=== PATIENT | female | born 1960 | race Caucasian/White ===

== ENCOUNTER 2017-02-20 08:15 | Outpatient (CLI) | payer OTHER | END 2017-02-20 08:16 | disposition home or self-care (01) | DX: Z00.00 Encounter for general adult medical examination without abnormal findings (principal) ==

== ENCOUNTER 2017-04-16 09:25 | Outpatient (CLI) | payer OTHER ==
--- NOTE | 2017-04-17 18:22 | Mammography Report ---
DIGITAL SCREENING MAMMOGRAM: 04/16/2017 CLINICAL INDICATION: A 56-year-old with history of late childbearing for screening. COMPARISON: Films from [place], [place], dated 06/28/2015, 03/09/2014, 10/03/2011. TECHNIQUE: Routine CC and MLO projections were obtained of the breasts. The breasts demonstrate fatty replacement bilaterally. A few punctate, typically benign calcificatio ns are present. No suspicious masses, clustered microcalcifications, or regions of architectural dis tortion are identified. IMPRESSION: BENIGN FINDINGS. RECOMMENDATION: ROUTINE ANNUAL SCREENING UNLESS OTHERWISE CLINICALLY INDICATED. BIRADS CATEGORY: 2, BENIGN FINDINGS. STANDARD QUALIFYING STATEMENTS 1. This examination was reviewed with the aid of Computed-Aided Detection (CAD). 2. A negative or benign imaging report should not delay biopsy if clinically suspicious findings are present. Consider surgical consultation if warranted. More than 5% of cancers are not identified b y imaging. 3. Dense breasts may obscure an underlying neoplasm. JOB #: [id number] EXT JOB #:[id number]
== END 2017-04-16 09:26 | disposition home or self-care (01) ==
LOC: DI 09:25
PROVIDERS: ATTEND Physician Assistant Medical
DX: Z12.31 Encounter for screening mammogram for malignant neoplasm of breast (principal)
CPT/HCPCS: 77067

== ENCOUNTER 2018-10-08 08:30 | Outpatient (CLI) | payer OTHER ==
[2018-10-08 14:04] LABS: BASOPHILS % (AUTO) 0.7 %; EOSINOPHILS # (AUTO) 0.1 10^3/uL (0.0-0.7); EOSINOPHILS % (AUTO) 2.1 %; HGB - HEMOGLOBIN 15.9 g/dL (12.0-16.0); LYMPHOCYTES # (AUTO) 1.3 10^3/uL (1.5-3.5); LYMPHOCYTES % (AUTO) 32.9 %; MEAN CORPUSCULAR HEMOGLOBIN 33.6 pg (27.0-31.0); MEAN CORPUSCULAR HGB CONC 34.8 g/dL (32.0-36.0); MEAN CORPUSCULAR VOLUME 96.8 fL (81.0-99.0); MEAN PLATELET VOLUME 8.4 fL (7.9-10.8); MONOCYTES # (AUTO) 0.4 10^3/uL (0.0-1.0); MONOCYTES % (AUTO) 8.9 %; NEUTROPHILS # (AUTO) 2.2 10^3/uL (1.5-6.6); NEUTROPHILS % (AUTO) 55.4 %; PLT - PLATELET COUNT 194 10^3/uL (130-450); RED BLOOD COUNT 4.72 10^6/uL (4.20-5.40); RED CELL DISTRIBUTION WIDTH 12.9 % (12.0-15.0)
[2018-10-08 14:27] LABS: ALBUMIN 4.5 g/dL (3.2-5.5); ALBUMIN/GLOBULIN RATIO 1.4 (1.0-2.2); ALKALINE PHOSPHATASE 93 IU/L (42-121); ALT ALANINE AMINOTRANSFERASE 21 IU/L (10-60); AST ASPARTATE AMINOTRANSFERASE 21 IU/L (10-42); BILIRUBIN,TOTAL 0.7 mg/dL (0.2-1.0); BUN - BLOOD UREA NITROGEN 15 mg/dL (6-20); CALCIUM 9.6 mg/dL (8.5-10.3); CARBON DIOXIDE - CO2 28 mmol/L (21-32); CHLORIDE 105 mmol/L (101-111); CHOL/HDL RATIO 3.3 (<4.4); CHOLESTEROL 199 mg/dL; CREATININE 0.7 mg/dL (0.4-1.0); GFR - MDRD 86 (>89); GLUCOSE 86 mg/dL (70-100); HDL CHOLESTEROL 60 mg/dL; LDL CHOLESTEROL,CALCULATED 109 mg/dL; LDL/HDL RATIO 1.8 (<4.4); SODIUM 140 mmol/L (135-145); TOTAL PROTEIN 7.7 g/dL (6.7-8.2); VLDL CHOLESTEROL 30 mg/dL
== END 2018-10-08 23:59 | disposition home or self-care (01) ==
LOC: LAB.WCP 08:30
PROVIDERS: ATTEND Physician Assistant
DX: Z00.00 Encounter for general adult medical examination without abnormal findings (principal); E78.5 Hyperlipidemia, unspecified; Z51.81 Encounter for therapeutic drug level monitoring; Z79.899 Other long term (current) drug therapy
CPT/HCPCS: 36415; 80053; 80061; 83721; 84443; 85025

== ENCOUNTER 2018-12-12 09:43 | Outpatient (CLI) | payer OTHER ==
--- NOTE | 2018-12-12 16:07 | Ultrasound Report ---
Reason: THYROMEGALY,CERVICAL LYMPHADENOPATHY,ANTERIOR,BILA Procedure Date: 12/12/2018 Accession Number: [id number] / [id number] Procedure: US - Head or Neck Soft Tissue CPT Code: FULL RESULT: EXAM: THYROID ULTRASOUND EXAM DATE: 12/12/2018 10:06 AM. CLINICAL HISTORY: Thyromegaly, cervical lymphadenopathy, anterior, bilaterally. COMPARISON: None. TECHNIQUE: Real time sonographic imaging of the thyroid was performed by the special crimes investigator. Multiple customer service representative static images were saved for review. FINDINGS: THYROID GLAND: Right Lobe: 4.6 x 1.8 x 1.6 cm, volume 6.9 cc. Normal background echotexture. Right Lobe Nodules: 0.7 x 0.5 x 0.6 cm solid echogenic nodule with calcification, single coarse. Left Lobe: 4.7 x 1.4 x 1.3 cm, volume 4.4 cc. Normal background echotexture. Left Lobe Nodules: Hypoechoic 0.2 cm nodule, likely cyst. Isthmus: 0.2 cm AP. Isthmic Nodules: None. LYMPH NODES: A hyperechoic 0.8 x 0.4 x 0.6 cm nodule along the inferior pole of the left lobe of the thyroid does not demonstrate sonographic appearance of a lymph node. Nonspecific, possibly parathyroid gland. No definite lymphadenopathy. OTHER: None. IMPRESSION: Recommend follow-up ultrasound to demonstrate stability of the left lobe of the thyroid findings in 6 months. If stable thereafter, annual surveillance until long-term stability is established. Management recommendations are based on 2015 [place] [employer] Management Guidelines for Adult Patients with Thyroid Nodules and Differentiated Thyroid Cancer. RADIA
== END 2018-12-12 09:44 | disposition home or self-care (01) ==
LOC: DI 09:43
PROVIDERS: ATTEND Physician Assistant
DX: E04.2 Nontoxic multinodular goiter (principal)
CPT/HCPCS: 76536

== ENCOUNTER 2019-05-09 12:43 | Outpatient (CLI) | payer OTHER ==
[2019-05-09] MEDS ORDERED: GADOBUTROL 10 MMOL/10 ML VIAL ONE (13:23)
[2019-05-09] MEDS ORDERED: GADOBUTROL 10 MMOL/10 ML VIAL IVP ONE (14:07)
--- NOTE | 2019-05-10 01:45 | MRI Report ---
Reason: SEIZURE DISORDER, HX OF OLIGODENDROGLIOMA OF BRAIN Procedure Date: 05/09/2019 Accession Number: [id number] / [id number] Procedure: MRI - Brain W/WO CPT Code: FULL RESULT: EXAM: MRI BRAIN WITHOUT AND WITH CONTRAST EXAM DATE: 05/09/2019 02:19 PM. CLINICAL HISTORY: Seizure disorder, history of oligodendroglioma of brain. COMPARISON: None. TECHNIQUE: Multiplanar, multisequence T1-weighted and fluid-sensitive MR sequences of the brain were performed. Sequences optimized for routine and seizure evaluation. Other: Additional coronal images through the hippocampi were obtained. IV Contrast: 9 mL of Gadavist. FINDINGS: Brain Volume: Normal for age. Parenchyma: A well-defined resection cavity is present in the right frontal lobe correlating with the history of prior brain tumor. T2 hyperintensity is seen along the medial and posterior margins of the resection cavity without associated mass effect, most likely representing post surgical gliosis. There is no diffusion restriction to suggest an acute or recent infarct. The susceptibility sensitive sequence demonstrates no evidence of hemorrhage. Minimal presumed chronic microvascular ischemic changes are noted in the bilateral frontal lobes, not unusual for the patient's age. Coronal images through the hippocampi demonstrate no evidence of abnormal T2 hyperintensity in either hippocampus to suggest mesial temporal sclerosis. Elsewhere in the brain, there is no evidence of cortical dysplasia or bernal matter heterotopia. Ventricles/Cisterns: No hydrocephalus. No abnormal extra-axial fluid collection or hemorrhage. Orbits: Symmetric and unremarkable. Sella Turcica: The pituitary gland, cavernous sinuses, suprasellar cistern and optic chiasm are unremarkable. IAC: Symmetric and unremarkable. Vasculature: Normal signal flow void is seen in the major arterial structures at the skull base. The dural sinuses are patent and enhance normally. Sinuses: No acute sinus disease. Bones: Right frontal craniotomy changes are noted from prior brain tumor surgery. IMPRESSION: 1. A right frontal resection cavity is present with mild surrounding T2 hyperintensity, likely representing postoperative gliosis. There is no associated mass-effect or nodular enhancement to suggest recurrent tumor. 2. Elsewhere in the brain, there is no evidence of mesial temporal sclerosis, cortical dysplasia, or bernal matter heterotopia. 3. No acute infarct or hemorrhage. RADIA
== END 2019-05-09 12:44 | disposition home or self-care (01) ==
LOC: DI 12:43
PROVIDERS: ATTEND Physician Assistant
DX: G40.909 Epilepsy, unspecified, not intractable, without status epilepticus (principal); Z85.841 Personal history of malignant neoplasm of brain
CPT/HCPCS: 70553; A9585

== ENCOUNTER 2019-06-16 14:33 | Outpatient (CLI) | payer OTHER ==
--- NOTE | 2019-06-16 16:14 | Ultrasound Report ---
Reason: THYROID NODULE Procedure Date: 06/16/2019 Accession Number: [id number] / [id number] Procedure: US - Head or Neck Soft Tissue CPT Code: FULL RESULT: EXAM: THYROID ULTRASOUND EXAM DATE: 06/16/2019 03:19 PM. CLINICAL HISTORY: THYROID NODULE. COMPARISON: HEAD OR NECK SOFT TISSUE 12/12/2018 10:06 AM. TECHNIQUE: Real time sonographic imaging of the thyroid was performed by the health screener. Multiple self pay representative static images were saved for review. FINDINGS: THYROID GLAND: Right Lobe: 4.1 x 1.8 x 1.8 cm, volume 6.7 cc. Normal background echotexture. Right Lobe Nodules: 0.8 x 0.6 x 0.6 solid hyperechoic nodule with solitary calcification, unchanged. Echogenic 0.7 x 0.4 x 0.5 cm nodule along the mid medial right thyroid again noted, question parathyroid, as before. Left Lobe: 3.3 x 1 x 1.6 cm, volume 2.7 cc. Normal background echotexture. Left Lobe Nodules: 0.4 x 0.4 x 0.3 hypoechoic medial lower pole nodule. 0.2 x 0.2 x 0.3 cm lateral hypoechoic mid gland nodule Isthmus: 0.15 cm AP. Isthmic Nodules: None. LYMPH NODES: No adenopathy demonstrated in the central or lateral compartment. OTHER: None. IMPRESSION: Stable thyroid ultrasound compared with 12/12/2018. Suggest follow-up thyroid ultrasound in 12-24 months. Management recommendations are based on 2015 [place] [employer] Management Guidelines for Adult Patients with Thyroid Nodules and Differentiated Thyroid Cancer. RADIA
== END 2019-06-16 14:34 | disposition home or self-care (01) ==
LOC: DI 14:33
PROVIDERS: ATTEND Physician Assistant
DX: E04.2 Nontoxic multinodular goiter (principal)
CPT/HCPCS: 76536

== ENCOUNTER 2021-05-03 08:00 | Outpatient (CLI) | payer OTHER ==
[2021-05-03 11:56] LABS: BASOPHILS % (AUTO) 0.9 %; EOSINOPHILS # (AUTO) 0.1 10^3/uL (0.0-0.7); HCT - HEMATOCRIT 46.5 % (37.0-47.0); HGB - HEMOGLOBIN 15.2 g/dL (12.0-16.0); LYMPHOCYTES # (AUTO) 1.9 10^3/uL (1.5-3.5); LYMPHOCYTES % (AUTO) 40.7 %; MEAN CORPUSCULAR HEMOGLOBIN 32.5 pg (27.0-31.0); MEAN CORPUSCULAR HGB CONC 32.7 g/dL (32.0-36.0); MEAN CORPUSCULAR VOLUME 99.4 fL (81.0-99.0); MEAN PLATELET VOLUME 10.1 fL (7.9-10.8); MONOCYTES # (AUTO) 0.4 10^3/uL (0.0-1.0); MONOCYTES % (AUTO) 8.8 %; NEUTROPHILS # (AUTO) 2.2 10^3/uL (1.5-6.6); NEUTROPHILS % (AUTO) 47.4 %; PLT - PLATELET COUNT 206 10^3/uL (130-450); RED BLOOD COUNT 4.68 10^6/uL (4.20-5.40); RED CELL DISTRIBUTION WIDTH 12.6 % (12.0-15.0); WHITE BLOOD COUNT 4.5 x10^3/uL (4.8-10.8)
[2021-05-03 12:23] LABS: THYROID STIMULATING HORMONE 6.16 uIU/mL (0.34-5.60)
[2021-05-03 12:29] LABS: ALBUMIN 4.4 g/dL (3.2-5.5); ALBUMIN/GLOBULIN RATIO 1.4 (1.0-2.2); ALKALINE PHOSPHATASE 75 IU/L (42-121); ALT ALANINE AMINOTRANSFERASE 18 IU/L (10-60); AST ASPARTATE AMINOTRANSFERASE 21 IU/L (10-42); BILIRUBIN,TOTAL 0.5 mg/dL (0.2-1.0); BUN - BLOOD UREA NITROGEN 19 mg/dL (6-20); CARBON DIOXIDE - CO2 27 mmol/L (21-32); CHLORIDE 103 mmol/L (101-111); CHOL/HDL RATIO 3.2 (<4.4); CHOLESTEROL 207 mg/dL; CREATININE 0.9 mg/dL (0.4-1.0); GFR - MDRD 64 (>89); GLUCOSE 94 mg/dL (70-100); HDL CHOLESTEROL 65 mg/dL; LDL CHOLESTEROL,CALCULATED 127 mg/dL; POTASSIUM 4.4 mmol/L (3.5-5.0); SODIUM 139 mmol/L (135-145); TOTAL PROTEIN 7.6 g/dL (6.7-8.2); TRIGLYCERIDES 73 mg/dL; VLDL CHOLESTEROL 15 mg/dL
[2021-05-03 13:17] LABS: FREE T4 (FREE THYROXINE) 1.03 ng/dL (0.58-1.64)
== END 2021-05-03 23:59 | disposition home or self-care (01) ==
LOC: LAB.WCP 08:00
PROVIDERS: ATTEND Family Medicine
DX: Z00.00 Encounter for general adult medical examination without abnormal findings (principal); E04.1 Nontoxic single thyroid nodule
CPT/HCPCS: 36415; 80053; 80061; 83721; 84439; 84443; 85025

== ENCOUNTER 2022-07-03 11:44 | Outpatient (CLI) | payer OTHER ==
--- NOTE | 2022-07-03 20:26 | XRAY Report ---
PROCEDURE: Toe(s) LT INDICATIONS: CONTUSION OF L GREAT TOE TECHNIQUE: AP view of the foot and 2 views of the great toe acquired COMPARISON: None FINDINGS: Bones: There is a mildly displaced transverse fracture of the first proximal phalanx. Intra-articular extension into the interphalangeal joint is not definitely seen, but is also difficult to exclude. N o suspicious bony lesions. Soft tissues: No suspicious soft tissue densities. Soft tissue edema is seen in the great toe. IMPRESSION: Mildly displaced fracture of the first proximal phalanx. Reviewed by: Matthieu Boo MD on 07/03/2022 8:23 PM PDT Approved by: Matthieu Boo MD on 07/03/2022 8:23 PM PDT Station ID: [id number]
== END 2022-07-03 11:45 | disposition home or self-care (01) ==
LOC: DI.N 11:44
PROVIDERS: ATTEND Family Medicine
DX: S90.112A Contusion of left great toe without damage to nail, initial encounter (principal); S92.412A Displaced fracture of proximal phalanx of left great toe, initial encounter for closed fracture
CPT/HCPCS: 73660

== ENCOUNTER 2022-07-31 08:00 | Outpatient (CLI) | payer OTHER ==
--- NOTE | 2022-07-31 16:37 | XRAY Report ---
PROCEDURE: Toe(s) LT INDICATIONS: LEFT GREAT TOE FRACTURE TECHNIQUE: 3 views of the left foot first toe acquired. COMPARISON: Left foot/toe radiographs 07/03/2022 FINDINGS: Bones: Redemonstrated transverse fracture of the first digit proximal phalanx distally. There is ava lar alignment of the fracture, approximately one fifth shaft width medial displacement of the distal fragment. Adjacent bony callus appears increased. Soft tissues: No suspicious soft tissue densities. IMPRESSION: Similar alignment of the first digit proximal phalanx fracture. Adjacent bony callus appears increase d. Reviewed by: Matthieu Aviles MD on 07/31/2022 4:36 PM PDT Approved by: Matthieu Aviles MD on 07/31/2022 4:36 PM PDT Station ID: [id number]
== END 2022-07-31 23:59 | disposition home or self-care (01) ==
LOC: DI.WOS 08:00
PROVIDERS: ATTEND Orthopaedic Surgery
DX: S92.412D Displaced fracture of proximal phalanx of left great toe, subsequent encounter for fracture with routine healing (principal)

== ENCOUNTER 2022-12-12 07:53 | Outpatient (CLI) | payer MEDICAID, OTHER ==
--- NOTE | 2022-12-12 14:11 | Ultrasound Report ---
LIMITED ULTRASOUND OF RIGHT BREAST: 12/12/2022 CLINICAL: Palpable right breast lump. Comparison is made to exams dated: 07/03/2019 mammogram, 04/16/2017 mammogram, and 06/28/2015 mammogram - [facility]. Color flow and real-time ultrasound of the right breast 5 o'clock region were performed. Felder scale images of the real-time examination were reviewed. There is a 1.6 cm x 1 cm x 0.5 cm irregular fluid collection in the right breast at 5 o'clock posteri or depth 10 cm from the nipple. This irregular fluid collection displays internal echoes. This greg elates as palpated. There is associated skin involvement. IMPRESSION: PROBABLY BENIGN The 1.6 cm x 1 cm x 0.5 cm irregular fluid collection in the right breast resembles a sebaceous cyst or an abscess and is probably benign. A follow-up ultrasound in 6 months is recommended to demonstrate stability or resolution. Exam findings were conveyed to the patient. Patient is advised to monitor for significant change. Cli nical follow-up as needed. This exam was interpreted at Station ID: [id number]. Electronically Signed By: Bandar Adhikari M.D. slc/:12/12/2022 09:09:25 Ultrasound BI-RADS: 3 Probably benign BI-RADS CATEGORY: (3) - 3 Ultrasound [id number] 6 month follow-up LATERALITY: (B)
--- NOTE | 2022-12-12 14:11 | Mammography Report ---
BILATERAL DIGITAL DIAGNOSTIC MAMMOGRAM 3D/2D: 12/12/2022 CLINICAL: Palpable right breast lump. Due for bilateral imaging. Comparison is made to exams dated: 07/03/2019 mammogram, 04/16/2017 mammogram, and 06/28/2015 mammogram - [facility]. Both breasts are almost entirely fatty (category a/<25% glandular tissue). There is a new focal asymmetry in the right breast at 5 o'clock posterior depth. This correlates as palpated. No other significant masses, calcifications, or other findings are seen in either breast. IMPRESSION: INCOMPLETE: NEEDS ADDITIONAL IMAGING EVALUATION The new focal asymmetry in the right breast is indeterminate. A targeted ultrasound is recommended and will immediately follow. Based on the Tyrer Cuzick model (a risk assessment model) the patients lifetime risk is 8.6% and her 10 year risk is 3.7%. According to the ACR, ACS, and NCCN guidelines, an annual breast MRI exam jose manuel g with mammogram is recommended if the patients lifetime risk is 20% or greater. This exam was interpreted at Station ID: [id number]. NOTE: For mammograms, a report in lay terms will be sent to the patient. Approximately 15% of breast malignancies will not be visualized mammographically. In the management of a palpable breast mass, a negative mammogram must not discourage biopsy of a clinically suspicious lesion. Electronically Signed By: Bandar Adhikari M.D. slc/:12/12/2022 09:04:07 ACR BI-RADS Category 0: Incomplete 3340F PARENCHYMAL PATTERN: (F) - The breast(s) demonstrate(s) diffuse fatty replacement. BI-RADS CATEGORY: (0) - 0 Ultrasound [id number] Immediate follow-up LATERALITY: (B)
== END 2022-12-12 07:54 | disposition home or self-care (01) ==
LOC: DI 07:53
PROVIDERS: ATTEND Physician Assistant
DX: N63.14 Unspecified lump in the right breast, lower inner quadrant (principal); R92.8 Other abnormal and inconclusive findings on diagnostic imaging of breast

== ENCOUNTER 2023-01-04 07:53 | Outpatient (CLI) | payer MEDICAID ==
[2023-01-04 08:24] LABS: ALBUMIN/GLOBULIN RATIO 1.3 (1.0-2.2); ALKALINE PHOSPHATASE 101 IU/L (42-121); ALT ALANINE AMINOTRANSFERASE 19 IU/L (10-60); AST ASPARTATE AMINOTRANSFERASE 22 IU/L (10-42); BILIRUBIN,TOTAL 0.2 mg/dL (0.2-1.0); BUN - BLOOD UREA NITROGEN 18 mg/dL (6-20); CALCIUM 9.3 mg/dL (8.5-10.3); CARBON DIOXIDE - CO2 27 mmol/L (21-32); CHLORIDE 107 mmol/L (101-111); CHOL/HDL RATIO 4.1 (<4.4); CHOLESTEROL 290 mg/dL; CREATININE 0.9 mg/dL (0.4-1.0); GFR - MDRD 63 (>89); GLUCOSE 98 mg/dL (70-100); HDL CHOLESTEROL 70 mg/dL; LDL CHOLESTEROL,CALCULATED 198 mg/dL; LDL/HDL RATIO 2.8 (<4.4); POTASSIUM 4.1 mmol/L (3.5-5.0); SODIUM 144 mmol/L (135-145); TOTAL PROTEIN 7.2 g/dL (6.7-8.2); TRIGLYCERIDES 108 mg/dL; VLDL CHOLESTEROL 22 mg/dL
[2023-01-04 08:34] LABS: BASOPHILS # (AUTO) 0.1 10^3/uL (0.0-0.1); BASOPHILS % (AUTO) 1.2 %; EOSINOPHILS # (AUTO) 0.1 10^3/uL (0.0-0.7); EOSINOPHILS % (AUTO) 2.6 %; HCT - HEMATOCRIT 45.1 % (37.0-47.0); HGB - HEMOGLOBIN 14.8 g/dL (12.0-16.0); MEAN CORPUSCULAR HEMOGLOBIN 32.5 pg (27.0-31.0); MEAN CORPUSCULAR HGB CONC 32.8 g/dL (32.0-36.0); MEAN CORPUSCULAR VOLUME 98.9 fL (81.0-99.0); MONOCYTES # (AUTO) 0.5 10^3/uL (0.0-1.0); MONOCYTES % (AUTO) 10.7 %; NEUTROPHILS # (AUTO) 1.7 10^3/uL (1.5-6.6); NEUTROPHILS % (AUTO) 39.5 %; PLT - PLATELET COUNT 224 10^3/uL (130-450); RED BLOOD COUNT 4.56 10^6/uL (4.20-5.40); RED CELL DISTRIBUTION WIDTH 12.8 % (12.0-15.0); WHITE BLOOD COUNT 4.3 x10^3/uL (4.8-10.8)
[2023-01-04 08:36] LABS: THYROID STIMULATING HORMONE 4.93 uIU/mL (0.34-5.60)
== END 2023-01-04 07:54 | disposition home or self-care (01) ==
LOC: LAB 07:53
PROVIDERS: ATTEND Physician Assistant Medical
DX: E78.5 Hyperlipidemia, unspecified (principal); E04.1 Nontoxic single thyroid nodule; G40.909 Epilepsy, unspecified, not intractable, without status epilepticus
CPT/HCPCS: 36415; 80050; 80061; 80177; 83721

== ENCOUNTER 2023-06-06 06:19 | Day surgery (SDC) | payer MEDICAID ==
[2023-06-06] MEDS ORDERED: LACTATED RINGERS 1,000 ML IV ONE ×2 (06:23→08:49)
--- NOTE | 2023-06-06 07:11 | ANESTHESIA ---
Pre-Anesthesia VS, & Labs - Diagnosis +cologuard - Procedure colonoscopy Vital Signs: Temp Pulse Resp BP Pulse Ox O2 Flow Rate 36.0 C L 18 137/95 H 97 06/06/23 06:23 06/06/23 06:23 06/06/23 06:23 06/06/23 06:23 Height: 5 ft 6 in Weight (kg): 97 kg Body Mass Index: 34.4 BMI Classification: Obese - NPO >8 hours - Is Patient ?: No - Lab Results Lab results reviewed: Yes Home Medications and Allergies Home Medications: Ambulatory Orders Atorvastatin [Lipitor] 20 mg PO DAILY 06/05/23 Cyclobenzaprine [Flexeril] 10 mg PO DAILY 06/05/23 Gabapentin [Neurontin] 600 mg PO BID 06/05/23 Levetiracetam [Keppra] 1,000 mg PO BID 06/05/23 Naproxen Sodium [Aleve] 440 mg PO DAILY 06/05/23 Calcium Carbonate [Calcium] 600 mg PO 06/06/23 [place]-3/Dha/Epa/Fish Oil [Fish Oil 500 mg Softgel] 06/06/23 Atorvastatin [Lipitor] 20 mg PO DAILY 06/05/23 Cyclobenzaprine [Flexeril] 10 mg PO DAILY 06/05/23 Gabapentin [Neurontin] 600 mg PO BID 06/05/23 Levetiracetam [Keppra] 1,000 mg PO BID 06/05/23 Naproxen Sodium [Aleve] 440 mg PO DAILY 06/05/23 Calcium Carbonate [Calcium] 600 mg PO 06/06/23 [place]-3/Dha/Epa/Fish Oil [Fish Oil 500 mg Softgel] 06/06/23 Allergies/Adverse Reactions: Allergies Allergy/AdvReac Type Severity Reaction Status Date / Time No Known Drug Allergies Allergy Verified 06/05/23 13:17 Anes History & Medical History - Anesthetic History Anesthesia Complications: reports: No previous complications Family history of Anesthesia Complications: Denies Family history of Malignant Hyperthermia: Denies - Medical History Cardiovascular: reports: High cholesterol Pulmonary: reports: None Gastrointestinal: reports: Chronic constipation Urinary: reports: None Neuro: reports: Seizure disorder Musculoskeletal: reports: Chronic back pain Endocrine/Autoimmune: reports: None Blood Disorders: reports: None Skin: reports: None Psychosocial: reports: Alcohol - Surgical History General: reports: Appendectomy Gynecologic: reports: Other Neurologic: reports: Craniotomy, Other Exam General: Alert, Oriented x3, Cooperative Dental: WNL Mouth Openin Fingerbreadth Neck Mobility: Normal Mallampati classification: III Thyromental Distance: 4-6 cm Respiratory: Lungs clear Cardiovascular: Regular rate Plan Anesthesia Type: General, MAC Consent for Procedure(s) Verified and Reviewed: Yes Code Status: Attempt Resuscitation ASA classification: 2-Mild systemic disease Is this case an emergency?: No
[2023-06-06] MEDS ORDERED: LIDOCAINE 1% ABBOJECT 50 MG/5 ML SYRINGE ONE (07:28)
[2023-06-06] MEDS ORDERED: GLYCOPYRROLATE 1 MG/5 ML VIAL ONE (07:28)
[2023-06-06] MEDS ORDERED: PROPOFOL 500 MG/50 ML 500 MG/50 ML VIAL ONE (07:28)
--- NOTE | 2023-06-06 07:29 | HISTORY & PHYSICAL EXAMINATION ---
Chief Complaint - Chief Complaint Chief Complaint: here for colonoscopy History of Present Illness - History Obtained From Records Reviewed: yes History obtained from: pt Exam Limitations: none - History of Present Illness HPI Comment/Other: positive cologuard. no gi symptoms. past colonoscopies over 10 years ago no polyps History - Past Medical History Cardiovascular: reports: High cholesterol Respiratory: reports: None Neuro: reports: Seizure disorder Endocrine/Autoimmune: reports: None GI: reports: Chronic constipation : reports: None HEENT: reports: None Psych: reports: Depression Musculoskeletal: reports: Chronic back pain Derm: reports: None MRSA Hx?: No - Past Surgical History General: reports: Appendectomy /SAW OFFBEARER: reports: Other Neuro: reports: Craniotomy, Other Meds/Allgy - Home Medications Home Medications: Ambulatory Orders Medication Instructions Recorded Confirmed Atorvastatin [Lipitor] 20 mg PO DAILY 06/05/23 06/06/23 Cyclobenzaprine [Flexeril] 10 mg PO DAILY 06/05/23 06/06/23 Gabapentin [Neurontin] 600 mg PO BID 06/05/23 06/06/23 Levetiracetam [Keppra] 1,000 mg PO BID 06/05/23 06/06/23 Naproxen Sodium [Aleve] 440 mg PO DAILY 06/05/23 06/06/23 Calcium Carbonate [Calcium] 600 mg PO 06/06/23 [place]-3/Dha/Epa/Fish Oil [Fish Oil 06/06/23 500 mg Softgel] - Allergies Allergies/Adverse Reactions: Allergies Allergy/AdvReac Type Severity Reaction Status Date / Time No Known Drug Allergies Allergy Verified 06/05/23 13:17 Review of Systems - Other Findings Other Findings: 10 pt ros as above otherwise unremarkable Exam - Vital Signs Vital Signs: Vital Signs x48h Temp Resp BP Pulse Ox 06/06/23 06:23 36.0 C L 18 137/95 H 97 - Physical Exam General Appearance: positive: No acute distress, Alert Eyes Bilateral: positive: PERRL, EOMI ENT: positive: No signs of dehydration Neck: positive: No JVD, Trachea midline Respiratory: positive: No respiratory distress Cardiovascular: positive: Regular rate & rhythm Abdomen: positive: Non-tender, No distention Neurologic/Psychiatric: positive: Oriented x3 Conclusion/Plan - Problem List (1) Abnormal stool test Conclusion/Plan: plan colonoscopy. parq held and consent obtained - Lab Results Lab results reviewed: Yes
[2023-06-06] MEDS ORDERED: PROPOFOL 200 MG/20 ML VIAL IVP ONE (08:10)
[2023-06-06] MEDS ORDERED: WATER FOR INJECTION,STERILE 10 ML MC ONE (08:32)
[2023-06-06 11:04] VITALS: BP 148/90; O2SAT 97
--- NOTE | 2023-06-06 12:00 | ANESTHESIA POST OP EVALUATION ---
Anesthesia Post Eval - Post Anesthesia Eval Vitals: Last Vital Signs Temp 36.3 C L 06/06/23 09:03 Pulse 67 06/06/23 09:18 Resp 18 06/06/23 09:18 BP 148/90 H 06/06/23 09:18 Pulse Ox 97 06/06/23 09:18 O2 Flow Rate CV Function Including HR & BP: Stable Pain Control: Satisfactory Nausea & Vomiting: Negative Mental Status: Baseline Respiratory Status: Airway Patent Hydration Status: Satisfactory Anesthesia Complications: None
== END 2023-06-06 06:20 | disposition home or self-care (01) ==
LOC: SDS 06:19
PROVIDERS: ATTEND Surgery
PROC: 0DBL8ZX Excision of Transverse Colon, Via Natural or Artificial Opening Endoscopic, Diagnostic (ICD-10-PCS; 2023-06-06)
PROC: 0DBM8ZX Excision of Descending Colon, Via Natural or Artificial Opening Endoscopic, Diagnostic (ICD-10-PCS; principal; 2023-06-06 07:30)
DX: R19.5 Other fecal abnormalities (principal); D12.3 Benign neoplasm of transverse colon; D12.4 Benign neoplasm of descending colon; K59.09 Other constipation; G40.909 Epilepsy, unspecified, not intractable, without status epilepticus; E66.9 Obesity, unspecified; Z68.34 Body mass index [BMI] 34.0-34.9, adult
CPT/HCPCS: 45380; 45385; J7120

== ENCOUNTER 2024-03-23 16:51 | Outpatient (CLI) | payer MEDICAID | END 2024-03-23 23:59 | disposition EMS.NT | LOC: EMS 16:51 | DX: Z03.89 Encounter for observation for other suspected diseases and conditions ruled out (principal) ==